=== PATIENT | female | born 1970 | race Caucasian/White ===

== ENCOUNTER 2020-10-30 11:37 | Emergency (ER) | payer MEDICARE, MEDICAID, SELFPAY ==
--- NOTE | 2020-10-30 11:40 | ED.EAR ---
HPI - Ear Problem General Chief complaint: Ear Stated complaint: left ear pain Time Seen by Provider: 10/30/20 11:40 Source: patient and RN notes reviewed History of Present Illness HPI Narrative: Patient is a 49-year-old female who presents the urgent care with complaints of left ear pain. Patient states is been going on for approximately 2 weeks and feels that she has some postnasal drainage on the left side as well. States that she has been using Tylenol for the pain. Denies of any other upper respiratory symptoms. Denies of any fever, nausea, vomiting. No other acute complaints. No acute distress noted. Patient aware of the plan of care. Some parts of this dictation were generated by voice recognition software and may contain typographical and/or grammatical inaccuracies. Related Data Home Medications Medication Instructions Recorded Confirmed ibuprofen 400 mg PO BID 10/20/19 10/20/19 losartan-hydrochlorothiazide 1 tablet PO DAILY 10/20/19 10/20/19 norethindrone ac-eth estradiol 1 tablet PO DAILY 10/20/19 10/20/19 [11/27 ()] propranolol 20 mg PO Q12H 10/20/19 10/20/19 topiramate 100 mg PO BID 10/20/19 10/20/19 Allergies Allergy/AdvReac Type Severity Reaction Status Date / Time No Known Allergies Allergy Verified 10/30/20 11:53 Review of Systems Review of Systems: Narrative: CONSTITUTIONAL: Denies fever, chills, or sweats. EYES: Denies visual changes, redness, or discharge. ENT: Reports of left ear pain and postnasal drainage CARDIOVASCULAR: Denies chest pain, palpitations, or edema. RESPIRATORY: Denies cough or dyspnea. GASTROINTESTINAL: Denies abdominal pain, nausea, vomiting, or diarrhea. GENITOURINARY: Denies dysuria or hematuria. SKIN: Denies rash or itching. MUSCULOSKELETAL: Denies back pain, joint pain, or myalgia. NEUROLOGIC: Denies headache, numbness, or weakness. All other systems reviewed are negative, except as documented in HPI. PMFSH Comments At the time of my signature, I reviewed and agree with the nursing past medical, surgical, social, and family history. There is no relevant family history pertinent to the patient complaint. Exam Narrative: Exam Narrative: GENERAL: This is a well-nourished, well-developed patient, in no apparent distress. HEAD: normocephalic, atraumatic. EYES: PERRL. Sclera clear/white. Vision is grossly intact. EARS: External ears normal, auditory canals clear and without drainage, TMs normal without perforation. Hearing grossly intact. NOSE: External nose normal with no obvious nasal discharge, nares without redness, no rhinorrhea. THROAT: Mucous membranes moist, posterior pharynx clear. NECK: Neck supple SKIN: warm, intact with no suspicious lesions or rash, good texture and turgor. NEURO: awake, alert, and oriented to person, place and time. There were no obvious focal neurologic abnormalities. EXTREMITIES: No clubbing, cyanosis, or edema. Course Vital Signs Vital signs: Vital Signs Temperature 98.2 F 10/30/20 11:47 Pulse Rate 75 10/30/20 11:47 Respiratory Rate 20 10/30/20 11:47 Blood Pressure 131/67 10/30/20 11:47 Pulse Oximetry 99 10/30/20 11:47 Temperature 98.2 F 10/30/20 11:47 Pulse Rate 75 10/30/20 11:47 Respiratory Rate 20 10/30/20 11:47 Blood Pressure 131/67 10/30/20 11:47 Pulse Oximetry 99 10/30/20 11:47 Reviewed Medical Decision Making MDM Narrative Medical decision making narrative: Advised the patient to use an hhng-kqj-weorboe antihistamine such as Benadryl/Claritin/Zyrtec in conjunction with Flonase nasal spray. Use a warm compress to the left ear as needed for comfort. The ear is currently not infected and does not have a significant amount of fluid behind the ear to suggest infection. Use Tylenol/ibuprofen as needed for pain. Do not put anything in the ear such as Q-tips, peroxide, [id number] eardrops. Follow-up with your PCP within 2 to 5 days or for worsening symptoms or failure to improve.
[2020-10-30 11:47] VITALS: BP 131/67; PULSE 75; RESP 20; TEMP 36.8; O2SAT 99
== END 2020-10-30 11:57 | disposition home or self-care (01) ==
PROVIDERS: Emergency Provider Nurse Practitioner Family; PCP Internal Medicine
DX: H92.02 Otalgia, left ear (principal); I10 Essential (primary) hypertension
CPT/HCPCS: 99211; G0463

== ENCOUNTER 2022-01-03 12:32 | Emergency (ER) | payer OTHER, SELFPAY ==
--- NOTE | ~2022-01-03 | XR_ITS ---
EXAMINATION: XR chest 2V EXAM DATE: 01/03/2022 13:49 INDICATION: Cough for 2 weeks. TECHNIQUE: Frontal and lateral projections of the chest obtained and reviewed. There is no prior jovanny dy for comparison. FINDINGS: The lungs are clear. There are no pleural effusions. The cardiomediastinal silhouette is within normal limits. There is no pneumothorax suspected. The bones and soft tissues are unremarkab le. IMPRESSION: Unremarkable chest x-ray exam. Reviewed, dictated and finalized at location A. [employer]IST
[2022-01-03 12:38] VITALS: BP 163/73; PULSE 83; RESP 20; TEMP 36.9; O2SAT 99
--- NOTE | 2022-01-03 13:42 | ED.URI ---
HPI - URI/Sore Throat General Chief Complaint: Upper Respiratory Infection Stated Complaint: cough with wheezing Time Seen by Provider: 01/03/22 13:36 Source: patient and RN notes reviewed Mode of arrival: ambulatory Limitations: no limitations History of Present Illness HPI Narrative: Patient presents today complaint of a 2-week history of productive cough that is worse at night, wheezing, chest congestion, shortness of breath with coughing episodes, left ear pain, rhinorrhea. She has been taking Robitussin without relief and Mucinex with mild relief. Denies history of asthma or COPD. Denies fever. MD elicited complaint: cough Related Data Home Medications Medication Instructions Recorded Confirmed losartan-hydrochlorothiazide 1 tablet PO DAILY 10/20/19 01/03/22 norethindrone ac-eth estradiol 1 tablet PO DAILY 10/20/19 01/03/22 [11/27 (21)] propranolol 20 mg PO Q12H 10/20/19 01/03/22 fluoxetine 40 mg PO DAILY 01/03/22 01/03/22 Allergies Allergy/AdvReac Type Severity Reaction Status Date / Time No Known Allergies Allergy Verified 01/03/22 12:45 Review of Systems Review of Systems: CONSTITUTIONAL: Denies body aches, fever, chills, or sweats. EYES: Denies visual changes, redness, or discharge. ENT: Denies congestion, sore throat+ Rhinorrhea left ear pain CARDIOVASCULAR: Denies chest pain, palpitations, or edema. RESPIRATORY: + Cough, wheezing, shortness of breath. GASTROINTESTINAL: Denies abdominal pain, nausea, vomiting, or diarrhea. GENITOURINARY: Denies dysuria or hematuria. SKIN: Denies rash, itching, or wounds. MUSCULOSKELETAL: Denies back pain, joint pain, or myalgia. NEUROLOGIC: Denies headache, numbness, tingling, or weakness. PSYCH: Denies depression or anxiety. [facility] Past Medical History Medical History (Updated 01/03/22 @ 14:09 by Melissa Leonardo, OIL CHANGE TECHNICIAN, ) Hypertension Comments At time of signature, I have reviewed and agree with nursing past medical, surgical, social and family history unless otherwise noted. Please see nursing chart for further information. There is no relevant family history pertinent to the presenting complaint Exam Narrative: GENERAL: Well-appearing, over-nourished, and in no acute distress. HEAD: Normocephalic, atraumatic. EYES: EOMI. No redness or drainage. Conjunctivae normal. ENT: Mucous membranes pink and moist. Nares clear. No rhinorrhea. TMs normal bilaterally. Throat normal. Uvula midline. NECK: Normal AROM. Supple. No lymphadenopathy. CHEST: No respiratory distress. Mild expiratory wheezing throughout, diminished in the bilateral bases. HEART: Regular rate and rhythm. No murmur appreciated. Normal peripheral pulses. EXTREMITIES: Normal range of motion. No edema. SKIN: Warm, dry, no rash. Capillary refill normal. Normal skin turgor. NEURO: No focal deficits. Alert and oriented x3. Gait steady. PSYCH: Normal affect. No signs of depression or anxiety. Course Course Level of Care: Express Care Visit Vital Signs Vital signs: Vital Signs Temperature 98.4 F 01/03/22 12:38 Pulse Rate 83 01/03/22 12:38 Respiratory Rate 20 01/03/22 12:38 Blood Pressure 163/73 H 01/03/22 12:38 Pulse Oximetry 99 01/03/22 12:38 Temperature 98.4 F 01/03/22 12:38 Pulse Rate 83 01/03/22 12:38 Respiratory Rate 20 01/03/22 12:38 Blood Pressure 163/73 H 01/03/22 12:38 Pulse Oximetry 99 01/03/22 12:38 Reviewed. Pt has been instructed to follow up with her PCP regarding her elevated blood pressure today. MDM - URI/Sore Throat Differential Diagnosis Differential diagnosis: Likely upper respiratory infection, sinusitis, viral infection, bronchitis and other (Pneumonia) Imaging Data Radiologist's impression: ITS Impressions Chest X-Ray 01/03/22 13:53 IMPRESSION: Unremarkable chest x-ray exam. Critical Care Time Critical Care Time Critical Care Time: No Discharge Plan Discharge Clinical Impression: Larry
== END 2022-01-03 14:15 | disposition home or self-care (01) ==
PROVIDERS: Emergency Provider Nurse Practitioner; PCP Internal Medicine
DX: J40 Bronchitis, not specified as acute or chronic (principal); J06.9 Acute upper respiratory infection, unspecified; I10 Essential (primary) hypertension
CPT/HCPCS: 71046; 99213; G0463

== ENCOUNTER 2023-01-26 10:42 | Emergency (ER) | payer MEDICARE, SELFPAY ==
[2023-01-26 11:20] VITALS: BP 153/70; PULSE 77; RESP 20; TEMP 36.9; O2SAT 96
--- NOTE | 2023-01-26 12:31 | ED.URI ---
HPI - URI/Sore Throat General Chief Complaint: Upper Respiratory Infection Stated Complaint: cold flu Time Seen by Provider: 01/26/23 12:26 Source: patient and RN notes reviewed Mode of arrival: ambulatory Limitations: no limitations History of Present Illness HPI Narrative: 52-year-old female presents with concern for this 2-3 day history of cough, chest congestion. Reports symptoms worsen when she is lying down. She reports a history of needing albuterol inhaler, she is not sure what her diagnosis for that was. She does not currently have an albuterol inhaler. She reports some nasal congestion. She denies fever, aches, chills, sweats. She denies shortness of breath currently MD elicited complaint: cough and nasal congestion Related Data Home Medications Medication Instructions Recorded Confirmed losartan 100 1 tablet PO DAILY 10/20/19 01/03/22 mg-hydrochlorothiazide 12.5 mg tablet norethindrone acetate 1 mg-ethinyl 1 tablet PO DAILY 10/20/19 01/03/22 estradiol 20 mcg tablet (Junel) glimepiride 1 mg tablet mg 01/26/23 Allergies Allergy/AdvReac Type Severity Reaction Status Date / Time No Known Allergies Allergy Verified 01/03/22 12:45 Review of Systems Review of Systems: CONSTITUTIONAL: Denies malaise, chills, sweats, or fever. EYES: Denies visual changes, redness, or discharge. ENT: Reports rhinorrhea, congestion. Denies sinus pain, otalgia and sore throat. CARDIOVASCULAR: Denies chest pain, palpitations, or edema. RESPIRATORY: Reports cough and chest congestion. Denies dyspnea. GASTROINTESTINAL: Denies abdominal pain, nausea, vomiting, diarrhea SKIN: Denies rash or itching. MUSCULOSKELETAL: Denies myalgia. NEUROLOGIC: Denies headache. All systems reviewed & are unremarkable except as noted in HPI and below [facility] Past Medical History Medical History (Updated 01/26/23 @ 12:35 by Leonila Esqueda NP) Hypertension Comments At time of signature, agree with nursing past medical, surgical, social and family history. There is no relevant family history pertinent to the presenting complaint Exam Narrative: GENERAL: Well-appearing, well-nourished, and in no acute distress. HEAD: Normocephalic EYES: PERRLA, conjunctivae clear ENT: Nares clear, turbinates edematous and erythematous, clear discharge. Mucous membranes moist. TM pearly barcenas with sharp light reflex bilaterally; no tragal tenderness. Oropharynx not erythematous without lesions. Tonsils not enlarged and without exudate, no drooling, no hoarseness, no trismus, uvula midline. NECK: Supple. No lymphadenopathy CHEST: Clear to auscultation, breath sounds equal. No wheezing, rhonchi, rales, or stridor. No respiratory distress, speaks in full sentences. Cough noted HEART: Regular rate and rhythm. No murmur heard. SKIN: Warm, dry, no rash. NEURO: Alert and oriented x3. PSYCH: Normal mood and affect Course Course Emergency Course: Patient is aware of diagnosis, understands and agrees to treatment plan. Anticipatory guidance given. Patient agrees to follow-up as directed and is aware of reasons to seek care at the emergency department. Portions of this record may have been created with voice recognition software Level of Care: Express Care Visit Vital Signs Vital signs: Vital Signs Temperature 98.5 F 01/26/23 11:20 Pulse Rate 77 01/26/23 11:20 Respiratory Rate 20 01/26/23 11:20 Blood Pressure 153/70 H 01/26/23 11:20 Pulse Oximetry 96 01/26/23 11:20 Oxygen Delivery Room Air 01/26/23 11:20 Temperature 98.5 F 01/26/23 11:20 Pulse Rate 77 01/26/23 11:20 Respiratory Rate 20 01/26/23 11:20 Blood Pressure 153/70 H 01/26/23 11:20 Pulse Oximetry 96 01/26/23 11:20 Oxygen Delivery Room Air 01/26/23 11:20 Reviewed. MDM - URI/Sore Throat MDM Narrative Medical decision making narrative: Differential diagnosis considered: Mazariegos virus, strep pharyngitis, allergic rhinitis, upper respiratory tract infection
== END 2023-01-26 12:40 | disposition home or self-care (01) ==
PROVIDERS: Emergency Provider Nurse Practitioner; PCP Internal Medicine
DX: J40 Bronchitis, not specified as acute or chronic (principal); I10 Essential (primary) hypertension
CPT/HCPCS: 99213; G0463

== ENCOUNTER 2023-08-22 12:55 | Emergency (ER) | payer MEDICARE, SELFPAY ==
[2023-08-22 13:03] VITALS: BP 132/72; PULSE 78; RESP 16; TEMP 36.7; O2SAT 98
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
== END 2023-08-22 13:12 | disposition home or self-care (01) ==
PROVIDERS: Emergency Provider Nurse Practitioner Family; PCP Internal Medicine
DX: T21.22XA Burn of second degree of abdominal wall, initial encounter (principal); X10.0XXA Contact with hot drinks, initial encounter; I10 Essential (primary) hypertension
CPT/HCPCS: 99213; G0463

== ENCOUNTER 2024-08-24 13:52 | Emergency (ER) | payer MEDICARE, SELFPAY ==
[2024-08-24 14:04] VITALS: BP 103/45; PULSE 81; RESP 20; TEMP 36.7; O2SAT 99
[2024-08-24 14:15] VITALS: BP 133/64
--- NOTE | 2024-08-24 14:33 | ED.URI ---
HPI - URI/Sore Throat General Chief Complaint: Upper Respiratory Infection Stated Complaint: Headache/Cough/Dizziness Time Seen by Provider: 08/24/24 14:33 Source: patient, RN notes reviewed and old records reviewed Mode of arrival: ambulatory Limitations: no limitations History of Present Illness HPI Narrative: 53-year-old female went to Express Care complaint headache cough, dizziness, scratchy throat ringing in left ear for 2-3 weeks. Patient reports attempting to treat at home with cough drops, Tylenol, ibuprofen. patient resting in exam room in no acute distress. Respirations even and nonlabored. Patient able to speak complete sentences without difficulty. Related Data Home Medications Medication Instructions Recorded Confirmed losartan 100 1 tablet PO DAILY 10/20/19 08/24/24 mg-hydrochlorothiazide 12.5 mg tablet norethindrone 1 mg-ethinyl 1 tablet PO DAILY 08/22/23 08/24/24 estradiol 20 mcg (21)-iron 75 mg (7) tablet (Blisovi Fe 11/27 (28)) Allergies Allergy/AdvReac Type Severity Reaction Status Date / Time No Known Allergies Allergy Verified 08/24/24 14:17 Review of Systems Review of Systems: All systems reviewed & are unremarkable except as noted in HPI and below Constitutional: Constitutional: Reports as per HPI and Reports headache(s) Eyes: Eyes: Reports no additional eye complaints ENT: Reports as per HPI, Reports otalgia ( Left earring) and Reports sore throat ( scratchy per patient) Cardiovascular: Cardiovascular: Reports no additional cardiovascular complaints, Denies chest pain and Denies dyspnea Respiratory: Respiratory: Reports no additional respiratory complaints, Reports cough and Denies dyspnea Musculoskeletal: Musculoskeletal: Reports no additional musculoskeletal complaints Neurologic: Reports as per HPI and Reports dizziness Psychiatric: Psychiatric: Reports no additional psychiatric complaints [facility] Past Medical History Medical History Hypertension Comments At the time of my signature, I reviewed and agree with the nursing past medical, surgical, social, and family history. There is no relevant family history pertinent to the patient complaint. Exam Const: General: cooperative, comfortable, no acute distress, alert, ill appearing chronically, well groomed, well nourished and obese Nutritional Appearance: well nourished Orientation/consciousness: patient oriented x3 Limitations: no limitations HENMT: Head: normal to inspection Ears: external ears normal and TM abnormal bulging on the left, erythematous on the left and with fluid behind the TM on the left Face/Nose/Sinus: Normal external nose present, Normal nares present, normal facial exam, No erythema and No edema Face and sinus: normal facial exam, no erythema and no edema Mouth: Yes Normal oral and palatal mucosa present Throat: posterior oropharynx abnormal erythema Eyes: General: appearance normal, both eyes and all related structures Neck: Neck: normal visual inspection, full ROM and no meningeal signs Lymphatic: no lymphadenopathy noted and no lymphedema noted Chest: Chest palpation & inspection: normal inspection of the chest Resp: Effort & Inspection: normal respiratory effort and able to speak in complete sentences Auscultation: clear to auscultation bilaterally Cardio: Jugular venous distension: no JVD Rate: regular rate Rhythm: regular rhythm Back/Spine/Pelvis: Cervical Spine: cervical ROM normal Skin: General skin exam: normal color, no rashes or lesions noted and turgor normal Neuro: General: patient oriented x3, gait normal, moves all extremities and no meningeal signs Speech: normal speech Gait exam (Neuro): Normal gait present Extrem: General: normal to inspection, full ROM and capillary refill normal Psych: Appearance: grossly normal and well kempt Course Course Emergency Course: Some parts of this dictation
== END 2024-08-24 14:52 | disposition home or self-care (01) ==
PROVIDERS: Emergency Provider Nurse Practitioner Family
DX: H66.92 Otitis media, unspecified, left ear (principal); I10 Essential (primary) hypertension
CPT/HCPCS: 99213; G0463